=== PATIENT | female | born 1980 | race Caucasian/White ===

== ENCOUNTER 2019-01-18 19:52 | Emergency (ER) | payer SELFPAY ==
--- OUTSIDE RECORDS SUMMARY | 2019-01-18 20:02 | XMS REPORT | Continuity of Care Document ---
:1980 External Reference #:[id number] Author Name Swati Robert MD Address [address] [place] [address] Care Team Providers Name Role Phone Swati Robert MD Care Team Information Cold Header Unavailable Payers Date Identification Numbers Payment Provider Subscriber Policy Number: [id number] [facility] Ppo Yamilet Abraham PayID: [id number] [address] [address] [place] [address] Advance Directives Description No Information Available Problems Date Description Provider Status Onset: 01/07/2015 Kidney stone Lyly Carson, N.P. Active Onset: 01/07/2015 Charcot arthropathy of joint of ankle Lyly Carson, N.P. Active Family History Date Family Member(s) Observation Comments Father Hypertension Father due to VT () - 2010 Father Diabetes, Adult Mother Hypertension Mother Charcot Krista syndrome Mother Diabetes, Adult Mother Hypercholesterolemia First Sister Hypertension First Sister Li Grady Second Sister Cristina Social History Type Date Description Comments Sex Unknown Education Highest level completed, 12th grade Education Hightest level completed, took a few semesters of 1 year of college college Marital Status Lives With Spouse Lives With Son Lives With Daughter Diet Healthy, Well Balanced Smoke-Free Home is smoke-free Pets 3 dogs Pets Cows Pets Horse Drive Drives 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 Blood Donor Patient is a blood donor Hand Dominance RIGHT-handed Abuse No history of abuse Hobbies Gardening Hobbies farming Hobbies Sewing Tobacco Use Start: Unknown End: Former Cigarette Smoker QUIT IN 2003 Unknown 1/2 Pack Daily ETOH Use Occasionally consumes alcohol Tobacco Use Start: Unknown End: Patient is a former Unknown smoker Smoking Status Reviewed: 12/22/17 Patient is a former smoker Allergies, Adverse Reactions, Alerts Description No Known Drug Allergies Medications Medication Date Status Form Strength Qnty SIG Indications Ordering Provider Multivitamin Active Tablets 90tabs 1 by Ly Robert 019 mouth MD Swati every day Gabapentin Active Capsules 300mg 270caps 1 by M14.679 Jakob 018 mouth MD Swati three times a day Meloxicam Active Tablets 15mg 90tabs 1 by G60.0 Jakob 018 mouth MD Swati every day M14.679 Gabapentin 12/22/19 Hx Capsules 100mg 540caps 2 po three M14.679 Jakob 18 - times daily MD Swati 04/26/20 18 Oseltamivir 12/12/19 Hx Capsules 75mg 10caps 1 by mouth Blaine Robert 18 - every day for MD Swati 12/22/19 10 days 18 Meloxicam 09/21/20 Hx Tablets 7.5mg 60tabs 1 po bid G60.Karen Robert 17 - MD Swati 12/22/19 18 M14.679 Meloxicam 02/14/2017 - Hx Tablets 15mg 30tabs 1 tab by G60.Swati Brewster, 09/21/2017 mouth daily for pain for 1-2 weeks, then daily as needed for pain M14.679 Amoxicillin/Clavulanate 08/24/2016 Hx Tablets 875-125mg 20tabs 1 by J01.90 Jamilah Krishnan - reshma Allen MD 09/03/2016 twice a day Cefdinir 11/18/2014 Hx Capsules 300mg 20caps 1 by Alli - mouth Lyly, 01/07/2015 twice N.P. a day x 10 days Augmentin 04/11/2014 Hx Tablets 875-125mg 20tabs 1 po Alli, - bid x Masgeraldole, 11/18/2014 10 N.P. days Anusol-HC 01/18/2013 Hx Supposit 25mg 15units 1 pr Jessica Carson ory tid as Lyly, 11/18/2014 direc N.P. damir Ocuflox 01/02/2012 Hx Solution 0.3% 5ml 1 qtt [place], - to Mashelle, 01/18/2013 affect N.P. ed eye(s) q 4 hours for 2 days then qid x 5 days Clindamycin HCL 09/12/2011 Hx Capsules 300mg 14caps 1 po [place], - bid x Mashelle, 01/02/2012 7 days N.P. Valtrex 03/24/2011 Hx Tablets 1gm 4tabs 2 po [place], - bid x Mashelle, 11/18/2014 1 day N.P. Augmentin 03/24/2011 Hx Tablets 875-125mg 20tabs 1 po [place], - bid x Mashelle, 09/12/2011 10 N.P. days And Iron 01/25/2011 Hx Tablets 100tabs 1 po Alli, - qd Mashelle, 01/07/2015 N.P. Lotrisone 05/25/2009 Hx Cream 60g apply [place], - tid to Mashelle, 12/28/2010 affect N.P. ed area Ortho Tri-Cyclen 01/07/2009 Hx Tablets 2pk 1 po [place], - qd Mashelle, 12/28/2010 N.P. Chlorzoxazone 01/19/2007 Hx 500mg 40units 1 [place], - poqid Mashelle, 05/30/2008 prn N.P. Skelaxin 01/15/2007 Hx Tablets 800mg 40tabs 1 po Alli, - qid Mashelle, 01/19/2007 N.P. Ibuprofen 01/15/2007 Hx Tablets 600mg 30tabs 1 PO Alli, - qid W/ Mashelle, 05/30/2008 Food N.P. prn Pain Lab Testing 01/09/2007 Hx TSH,CB Alli, - C,comp Mashelle, 05/30/2008 lete N.P. metabo lic dx: fatigu e, dizzy, headca he Optivar 03/30/2006 Hx 1 gtt Alli, - each Mashelle, 05/30/2008 eye N.P. bid Keflex 03/14/2006 Hx Capsules 500mg 40caps 1 po Alli, - qid x Mashelle, 03/30/2006 10 N.P. days Bactroban 03/14/2006 Hx Ointment 2% 22gm apply [place], - bid as Mashelle, 03/30/2006 direct N.P. ed Natalie 28 Day Hx Tablets 0.03mg;3 1Pack 1 PO [place], - mg qd Mashelle, 01/07/2009 N.P. Meloxicam Hx Tablets 7.5mg 90tabs 1 by G60.0 Jakob, Jessica Longoria MD 02/14/2017 every day Immunizations CPT Code Status Date Vaccine Lot # [id number] Given 08/10/2018 Flu Vaccine NOS [id number] Given 09/13/2017 Afluria Or Fluvirin Flu Vac Intramuscular Vital Signs Date Vital Result Comment 12/27/2018 3:40pm Body Temperature 99.1 F tympanic Weight 201.00 lb Heart Rate 72 /min BP Systolic 114 mmHg BP Diastolic 70 mmHg Respiratory Rate 16 /min Height 62 inches 5'2" [facility] 12/27/18 O2 % BldC Oximetry 98 % BMI (Body Mass Index) 36.8 kg/m2 Last Menstrual Period [id number] [facility] 12/27/18 09/21/2018 3:58pm Weight 200.00 lb Height 63.5 inches 5'3.50" BMI (Body Mass Index) 34.9 kg/m2 04/26/2018 4:17pm Weight 197.00 lb Heart Rate 76 /min BP Systolic 112 mmHg BP Diastolic 70 mmHg Respiratory Rate 18 /min Height 63.5 inches 5'3.50"04/16/18 BMI (Body Mass Index) 34.3 kg/m2 04/16/2018 10:56am Weight 201.00 lb Heart Rate 76 /min BP Systolic 112 mmHg BP Diastolic 60 mmHg Respiratory Rate 18 /min Height 63.5 inches 5'3.50"04/16/18 BMI (Body Mass Index) 35.0 kg/m2 01/16/2018 4:17pm Weight 201.00 lb Heart Rate 68 /min BP Systolic 102 mmHg BP Diastolic 70 mmHg Respiratory Rate 18 /min Height 63.5 inches 5'3.50"02/14/17 BMI (Body Mass Index) 35.0 kg/m2 12/22/2017 4:04pm Weight 200.00 lb Heart Rate 76 /min BP Systolic 112 mmHg BP Diastolic 70 mmHg Height 63.5 inches 5'3.50"02/14/17 BMI (Body Mass Index) 34.9 kg/m2 09/21/2017 3:43pm Weight 189.00 lb Heart Rate 76 /min BP Systolic 112 mmHg BP Diastolic 70 mmHg Respiratory Rate 18 /min Height 63.5 inches 5'3.50"02/14/17 BMI (Body Mass Index) 33.0 kg/m2 02/14/2017 10:54am Weight 198.00 lb Heart Rate 80 /min BP Systolic 112 mmHg Respiratory Rate 18 /min Height 63.5 inches 5'3.50"02/14/17 BMI (Body Mass Index) 34.5 kg/m2 08/24/2016 10:07am Body Temperature 97.9 F Weight 194.00 lb Heart Rate 72 /min BP Systolic 130 mmHg BP Diastolic 78 mmHg Respiratory Rate 14 /min Height 63.5 inches 5'3.50" O2 % BldC Oximetry 98 % On room air BMI (Body Mass Index) 33.8 kg/m2 06/03/2016 10:59am Weight 191.00 lb Heart Rate 72 /min BP Systolic 100 mmHg BP Diastolic 70 mmHg Respiratory Rate 16 /min 05/18/2016 9:05am Weight 191.00 lb Heart Rate 76 /min BP Systolic 102 mmHg BP Diastolic 70 mmHg Respiratory Rate 18 /min Height 63.5 inches 5'3.50" BMI (Body Mass Index) 33.3 kg/m2 03/09/2016 8:15am Weight 192.00 lb Heart Rate 70 /min BP Systolic 114 mmHg BP Diastolic 74 mmHg Respiratory Rate 18 /min Height 63.5 inches 5'3.50" BMI (Body Mass Index) 33.5 kg/m2 01/07/2015 9:57am Body Temperature 99.0 F Weight 196.00 lb Heart Rate 89 /min BP Systolic 108 mmHg BP Diastolic 55 mmHg 11/18/2014 10:15am Body Temperature 98.9 F Weight 195.12 lb Heart Rate 69 /min BP Systolic 112 mmHg BP Diastolic 51 mmHg O2 % BldC Oximetry 98 % 10/17/2014 8:31am Body Temperature 98.5 F Weight 192.12 lb Heart Rate 73 /min BP Systolic 100 mmHg BP Diastolic 53 mmHg 04/11/2014 10:53am Body Temperature 99.7 F Weight 184.00 lb Heart Rate 79 /min BP Systolic 110 mmHg BP Diastolic 68 mmHg O2 % BldC Oximetry 95 % 10/24/2013 10:03am Body Temperature 98.0 F Weight 188.12 lb Heart Rate 79 /min BP Systolic 112 mmHg BP Diastolic 70 mmHg O2 % BldC Oximetry 98 % 09/26/2013 10:59am Body Temperature 96.3 F Weight 184.50 lb Heart Rate 67 /min BP Systolic 100 mmHg BP Diastolic 60 mmHg O2 % BldC Oximetry 99 % 01/18/2013 8:23am Body Temperature 98.7 F Weight 192.38 lb Heart Rate 88 /min BP Systolic 112 mmHg BP Diastolic 66 mmHg O2 % BldC Oximetry 98 % 08/03/2012 9:03am Body Temperature 98.2 F Weight 187.50 lb Heart Rate 98 /min BP Systolic 108 mmHg BP Diastolic 58 mmHg O2 % BldC Oximetry 99 % 07/27/2012 8:28am Body Temperature 98.6 F Weight 186.25 lb Heart Rate 89 /min BP Systolic 110 mmHg BP Diastolic 60 mmHg O2 % BldC Oximetry 98 % 01/02/2012 1:27pm Body Temperature 98.8 F Weight 182.00 lb Heart Rate 76 /min BP Systolic 106 mmHg BP Diastolic 63 mmHg O2 % BldC Oximetry 99 % 09/09/2011 11:31am Body Temperature 98.9 F Weight 179.00 lb Heart Rate 59 /min BP Systolic 111 mmHg BP Diastolic 70 mmHg O2 % BldC Oximetry 98 % 03/24/2011 1:48pm Body Temperature 99.0 F Weight 179.00 lb Heart Rate 82 /min BP Systolic 98 mmHg BP Diastolic 60 mmHg O2 % BldC Oximetry 97 % 01/25/2011 2:43pm Weight 182.00 lb Heart Rate 95 /min BP Systolic 120 mmHg BP Diastolic 60 mmHg O2 % BldC Oximetry 98 % 12/28/2010 11:03am Body Temperature 99.1 F Weight 181.00 lb Heart Rate 61 /min BP Systolic 90 mmHg BP Diastolic 60 mmHg Height 62.5 inches 5'2.50" O2 % BldC Oximetry 98 % BMI (Body Mass Index) 32.6 kg/m2 05/25/2009 2:15pm Body Temperature 98.9 F Weight 180.00 lb Heart Rate 72 /min BP Systolic 100 mmHg BP Diastolic 60 mmHg 03/30/2009 9:00am Body Temperature 98.4 F Weight 183.00 lb Heart Rate 70 /min BP Systolic 120 mmHg BP Diastolic 78 mmHg 01/07/2009 3:40pm Body Temperature 98.6 F Weight 183.00 lb Heart Rate 64 /min BP Systolic 98 mmHg BP Diastolic 60 mmHg Height 63 inches 5'3" O2 % BldC Oximetry 98 % BMI (Body Mass Index) 32.4 kg/m2 12/29/2008 4:09pm Body Temperature 98.5 F Weight 184.00 lb Heart Rate 64 /min BP Systolic 100 mmHg BP Diastolic 70 mmHg 05/30/2008 10:02am Weight 177.00 lb Heart Rate 70 /min BP Systolic 100 mmHg BP Diastolic 60 mmHg Height 63 inches 5'3" BMI (Body Mass Index) 31.4 kg/m2 01/15/2007 3:43pm Body Temperature 98.9 F Weight 179.00 lb Heart Rate 80 /min BP Systolic 100 mmHg BP Diastolic 60 mmHg 01/09/2007 3:55pm Body Temperature 98.8 F Weight 177.00 lb Heart Rate 80 /min BP Systolic 110 mmHg BP Diastolic 58 mmHg 03/30/2006 4:03pm Body Temperature 98.7 F Weight 175.00 lb Heart Rate 76 /min BP Systolic 110 mmHg BP Diastolic 60 mmHg 03/14/2006 4:06pm Weight 174.00 lb Heart Rate 80 /min BP Systolic 104 mmHg BP Diastolic 60 mmHg Results Test Date Facility Test Result H/L Range Note Laboratory test 12/27/2018 [facility] Pap Smear Thin <pending> finding Prep-RL CBC With [facility] K/uL 4.1-11.0 1 RBC 4.07 M/uL 4.00-5.40 Hemoglobin 12.6 gm/dL 12.0-16.0 Hematocrit 35.7 % Low 36.0-47.0 MCV 87.8 fL 80.0-97.0 MCH 30.9 pg 27.0-32.0 MCHC 35.2 g/dL 32.0-36.0 RDW 13.8 % 11.5-14.5 PLT Count 272 K/ul 140-400 MPV 8.4 FL 7.1-10.7 Neutrophil 64.2 % 35.0-75.0 Lymphocyte 28.8 % 16.0-52.0 Monocyte 5.1 % 2.0-10.0 Eosinophil 1.4 % 0.0-5.0 Basophil 0.5 % 0.0-4.0 Abs Neutrophils 4.7 K/uL 2.1-8.0 Abs Lymphocytes 2.1 K/uL 0.8-5.5 Abs Monocytes 0.4 K/uL 0.1-1.0 Abs Eosinophils 0.1 K/uL 0.0-0.5 Abs Basophils 0.0 K/uL 0.0-0.3 Comprehensive Met Panel-FCMG 12/15/2017 [facility] Sodium 141 mmol/L 135- 146 2 Potassium 4.1 mmol/L 3.5-5.2 Chloride# 110 mmol/L 97-110 3 Carbon Dioxide 26 mmol/L 24-34 Glucose 78 mg/dL 70-105 BUN 14 mg/dL 6-26 Creatinine 0.5 mg/dL 0.5-1.4 Calcium 8.5 mg/dL 8.5-10.2 Total Protein 6.1 g/dL 6.0-8.0 Albumin 3.8 g/dL 3.6-4.9 Globulin 2.3 g/dL 2.0-3.5 A/G Ratio 1.7 Ratio 1.0-2.2 Total Bilirubin 0.4 mg/dL 0.1-1.3 Alkaline Phosphatase 64 U/L 24-140 Alt 17 U/L 3-42 Ast 14 U/L 8-42 Lacey Egfr >60 >60 4 Non Lacey Egfr >60 >60 5 Anion Gap 5 mmol/L Low 7-16 6 Laboratory test 12/15/2017 [facility] TSH 1.01 uIU/mL 0.35-4.94 finding Laboratory test 05/18/2016 [facility] HPV Laboratory Allia 7 finding [phone] <SEE NOTE> Laboratory test 05/18/2016 [facility] Urine Microbiology res 8, 9 finding Culture <SEE NOTE> Laboratory test 05/18/2016 [facility] Pap Smear SEE NOTE 10 finding Thin Prep CBC With Auto 05/12/2016 [facility] WBC 6.9 K/uL 4.1-11.0 11 Diff RBC 4.32 M/uL 4.00-5.40 Hemoglobin 12.6 gm/dL 12.0-16.0 Hematocrit 37.9 % 36.0-47.0 MCV 87.9 fL 80.0-97.0 MCH 29.2 pg 27.0-32.0 MCHC 33.2 g/dL 32.0-36.0 RDW 13.9 % 11.5-14.5 PLT Count 283 K/ul 140-400 Neutrophil 66.4 % 35.0-75.0 Lymphocyte 26.3 % 16.0-52.0 Monocyte 5.4 % 2.0-10.0 Eosinophil 1.3 % 0.0-5.0 Basophil 0.6 % 0.0-4.0 Abs Neutrophils 4.6 K/uL 2.1-8.0 Abs Lymphocytes 1.8 K/uL 0.8-5.5 Abs Monocytes 0.4 K/uL 0.1-1.0 Abs Eosinophils 0.1 K/uL 0.0-0.5 Abs Basophils 0.0 K/uL 0.0-0.3 Comprehensive Metabolic (CMP) 05/12/2016 [facility] Sodium 138 mmol/L 134- 142 Potassium 4.3 mmol/L 3.5-5.2 Chloride 106 mmol/L 97-109 Carbon Dioxide 26 mmol/L 24-34 Glucose 92 mg/dL 70-105 BUN 12 mg/dL 6-26 Creatinine 0.5 mg/dL 0.5-1.4 Calcium 9.0 mg/dL 8.5-10.2 Total Protein 6.4 g/dL 6.0-8.0 Albumin 3.7 g/dL 3.6-4.9 Globulin 2.7 g/dL 2.0-3.5 A/G Ratio 1.4 Ratio 1.0-2.2 Total Bilirubin 0.6 mg/dL 0.1-1.3 Alkaline Phosphatase 74 U/L 24-140 Alt 15 U/L 3-42 Ast 14 U/L 8-42 Anion Gap 10 mmol/L 6-14 Lacey Egfr >60 >60 12 Non Lacey Egfr >60 >60 13 Laboratory test finding 05/12/2016 [facility] FSH 3.3 mIU/ml 14 LH 12.3 mIU/ml 15 TSH 1.50 uIU/mL 0.35-4.94 Testosterone LC, Bio 05/12/2016 [facility] Testosterone, LCMS 16.4 ng/dL ( 9.0-55.0) 16 Female/Child -RL Testo, Bioavailable 5.8 ng/dL (4.1-25.5) 17 Testo, Free 1.9 pg/mL (1.3-9.2) 18 Sex Horm Bind Glob @ 43 nmol/L (18-136) 19 Lipid 05/12/2016 [facility] Cholesterol 153 mg/dL 50-199 Triglycerides 130 mg/dL 30-200 HDL 32 mg/dL Low 35-85 20 Chol/ HDL Ratio 4.8 ratio 3.7-5.6 VLDL 26 mg/dL 2-29 LDL (Calc) 95 mg/dL 20-99 21 Comprehensive Metabolic (CMP) 01/07/2015 [facility] Sodium 138 mmol/L 134- 142 22 Potassium 4.2 mmol/L 3.5-5.2 Chloride 107 mmol/L 97-109 Carbon Dioxide 25 mmol/L 24-34 Glucose 84 mg/dL 70-105 BUN 10 mg/dL 6-26 Creatinine 0.5 mg/dL 0.5-1.4 Calcium 8.9 mg/dL 8.5-10.2 Total Protein 6.2 g/dL 6.0-8.0 Albumin 3.9 g/dL 3.6-4.9 Globulin 2.3 g/dL 2.0-3.5 A/G Ratio 1.7 Ratio 1.0-2.2 Total Bilirubin 0.3 mg/dL 0.1-1.3 Alkaline Phosphatase 63 U/L 24-140 Alt 15 U/L 3-42 Ast 13 U/L 8-42 Anion Gap 10 mmol/L 6-14 Lacey Egfr >60 >60 23 Non Lacey Egfr >60 >60 24 CBC With Auto Diff 01/07/2015 [facility] WBC 7.2 K/uL 4.1-11.0 RBC 4.24 M/uL 4.00-5.40 Hemoglobin 11.7 gm/dL Low 12.0-16.0 Hematocrit 35.7 % Low 36.0-47.0 MCV 84.3 fL 80.0-97.0 MCH 27.6 pg 27.0-32.0 MCHC 32.8 g/dL 32.0-36.0 RDW 16.9 % High 11.5-14.5 PLT Count 267 K/ul 140-400 Neutrophil 61.4 % 35.0-75.0 Lymphocyte 33.2 % 16.0-52.0 Monocyte 3.9 % 2.0-10.0 Eosinophil 1.1 % 0.0-5.0 Basophil 0.4 % 0.0-4.0 Abs Neutrophils 4.4 K/uL 2.1-8.0 Abs Lymphocytes 2.4 K/uL 0.8-5.5 Abmon 0.3 K/uL 0.1-1.0 Abs Eosinophils 0.1 K/uL 0.0-0.5 Abs Basophils 0.0 K/uL 0.0-0.3 Laboratory test 05/12/2014 [facility] HCG Serum, NEGATIVE finding (315)- - Qualitative Laboratory test 01/17/2014 [facility] Thyroid Stim 1.09 uIU/mL 0.49-4 finding (315)- - Hormone .67 Free T4 1.03 ng/dL 0.71-1.85 Cancer Antigen (CA) 125 17.1 U/mL 0.0-34.0 25 CBC 01/17/2014 [facility] White Blood Count 7.0 K/uL 3.1-10.7 (315)- - Red Blood Count 4.17 M/uL 3.90-5.40 Hemoglobin 12.2 gm/dL 11.6-15.8 Hematocrit 37.6 % 36.0-46.1 Mean Cell Volume 90.2 fl 80.9-99.0 Mean Corpuscular HGB 29.3 pg 25.9-32.7 Mean Corpuscular HGB Conc 32.4 g/dL 30.8-34.3 Platelet Count 297 K/uL 155-360 Red Cell Distri Width %CV 13.9 % 11.7-14.4 Mean Platelet Volume 10.4 fL 8.9-12.4 Affirm 10/24/2013 [facility] Trichomonas Vaginalis Negative Negative Gardnerella Vaginalis Negative Negative Adwoa Species Positive Abnormal Negative Laboratory test 10/24/2013 [facility] GC by Dna NEGATIVE Negative finding Probe Laboratory test 10/24/2013 [facility] Vag/Cerv SEE NOTE 26 finding Culture Urinalysis With 09/06/2013 [facility] Urine Color YELLOW Yellow Microscopic (315)- - Urine Clarity CLEAR Clear Urine Glucose - Dipstick NEGATIVE mg/dL Negative Urine Bilirubin - Dipstick NEGATIVE Negative Urine Ketone NEGATIVE mg/dL Negative Urine Specific [place] 1.020 1.010-1.030 Urine Blood LARGE High Negative Urine PH 6.5 6.5-7.5 Urine Protein - Dipstick 30 mg/dL High Negative Urine Urobilinogen - Dipstick 0.2 E.U./dL 0.2-1.0 Urine Nitrite - Dipstick NEGATIVE Negative Urine Leuk Esterase NEGATIVE Negative Urine RBC 30-50 rbc/hpf High 0-7 Urine WBC NONE SEEN wbc/hpf 0-7 Urine Epithelial Cells VERY FEW NONESEEN/lpf Urine Bacteria VERY FEW NONESEEN Urine HCG 09/06/2013 [facility] Urine HCG See Note 27 (Qualitative) (315)- - (Qualitative) Urine Screen 09/06/2013 [facility] Urine Screen See Note 28 (315)- - Laboratory test 09/06/2013 [facility] HCG Serum, NEGATIVE finding (315)- - Qualitative Comprehensive 09/06/2013 [facility] Glucose 114 mg/dL 76-11 Metabolic Panel (315)- - 5 BUN 12 mg/dL 5-23 Creatinine 0.7 mg/dL 0.5-1.4 Glom Filtration Rate, Estimate >60 mL/min >60 If >60 mL/min >60 29 BUN/Creat 17.1 ratio Sodium 141 mmol/L 136-145 Potassium 4.1 mmol/L 3.5-5.1 Chloride 110 mmol/L High 98-107 Carbon Dioxide 23 mEq/L 18-29 Anion Gap 12 mEq/L 8-16 Calcium 8.6 mg/dL 8.5-10.1 Total Protein 7.5 g/dL 6.3-8.0 Albumin 3.7 g/dL 3.5-5.0 Globulin 3.8 g/dL 1.9-4.3 Alb/Glob 1.0 ratio Bilirubin,Total 0.3 mg/dL 0.2-1.2 Sgot/Ast 12 U/L Low 16-40 SGPT/Alt 24 U/L Low 30-65 Alkaline Phosphatase 98 U/L 50-136 Laboratory test 09/06/2013 [facility] Lipase 58 U/L 28 -380 finding (315)- - CBC W/Automated 09/06/2013 [facility] White Blood 14.1 K/ uL High 3.1-10.7 Diff (315)- - Count Red Blood Count 4.37 M/uL 3.90-5.40 Hemoglobin 12.9 gm/dL 11.6-15.8 Hematocrit 38.6 % 36.0-46.1 Mean Cell Volume 88.3 fl 80.9-99.0 Mean Corpuscular HGB 29.5 pg 25.9-32.7 Mean Corpuscular HGB Conc 33.4 g/dL 30.8-34.3 Platelet Count 316 K/uL 155-360 Red Cell Distri Width SD 45.4 fl 3-47 Red Cell Distri Width %CV 14.4 % 11.7-14.4 Mean Platelet Volume 10.4 fL 8.9-12.4 Neut% 83.8 % High 40.4-72.8 Lymph % 12.7 % Low 17.0-46.1 [place] % 2.6 % Low 4.3-13.2 Eo% 0.8 % 0.0-6.6 Bas% 0.1 % 0.0-1.1 Neut# 11.82 K/uL High 1.0-7.0 Lymph # 1.80 K/uL 0.8-3.4 [place] # 0.37 K/uL 0.3-0.9 Eos # 0.12 K/uL 0.0-0.5 Baso # 0.02 K/uL 0.0-0.1 Laboratory test 09/09/2011 [facility] Urine Culture Microbiology res 30, 31 finding <SEE NOTE> Affirm 09/09/2011 [facility] Trichomonas Negative Negative Vaginalis Gardnerella Vaginalis Positive Abnormal Negative Adwoa Species Negative Negative Laboratory test 12/28/2010 [facility] (Do not Use) [facility] Pap - (SEE NOTE) [address] [facility] [place] [address] [phone] HPV Dna Test-[place] NEGATIVE 33 Laboratory test 12/28/2010 [facility] HPV Laboratory [facility] 34 finding [phone] <SEE NOTE> Laboratory test 05/25/2009 [facility] (Do not Use) [facility] Pap - (SEE NOTE) [address] [facility] [place] [address] [phone] Vaginitis Direct Test(Affirm) -LA (SEE NOTE) 36 Laboratory test 03/27/2009 [facility] Urine HCG NEGATIVE Negative 37 finding (315)- - (Qualitative) Urine Screen 03/27/2009 [facility] Urine Color YELLOW Yellow (315)- - Urine Clarity CLEAR Clear Urine Glucose - Dipstick NEGATIVE mg/dL Negative Urine Bilirubin - Dipstick NEGATIVE Negative Urine Ketone NEGATIVE mg/dL Negative Urine Specific [place] <=1.005 Low 1.010-1.030 Urine Blood NEGATIVE Negative Urine PH 6.0 Low 6.5-7.5 Urine Protein - Dipstick NEGATIVE mg/dL Negative Urine Urobilinogen - Dipstick 0.2 E.U./dL 0.2-1.0 Urine Nitrite - Dipstick NEGATIVE Negative Urine Leuk Esterase NEGATIVE Negative Dna Probe N. 03/27/2009 [facility] Dna Probe For <see comment> 38 Gono & C. (315)- - Chlamydia Trac. Trach. Dna Probe For N. Gonorrhoeae <see comment> 39 Laboratory test 03/27/2009 [facility] Trichomonas <see comment> 40 finding (315)- - Direct Exam Laboratory test 05/30/2008 [facility] (Do not Use) Papsmear, (SEE NOTE) 41 finding [facility] [place] [address] [phone] [facility] Pap - [place] (SEE NOTE) 42 Vaginitis Direct Ag 03/30/2006 [facility] (Do not Use) Special Requests - NONE (Affirm) -[facility] [place] [address] [phone] Report Status - LA FINAL 1 3 mos 2 Updated reference range on new analyzer 3 Updated reference range on new analyzer 4 Concerning GFR Guidelines for Americans: Normal function or mild renal disease, if clinically at risk: >/=60 mL/min Moderately decreased: 30-59 Severely decreased: 15-29 Renal failure: <15 5 Concerning GFR Guidelines: Normal function or mild renal disease, if clinically at risk: >/=60 mL/min Moderately decreased: 30-59 Severely decreased: 15-29 Renal failure: <15 Glomerular Filtration Rate (GFR) is estimated based on the MDRD equation, which assumes a steady state for creatinine as recommended by the National Kidney Disease Education Program in conjunction with the National Institutes of Health and the National Kidney Foundation. Clinical conditions in which it may be necessary to measure GFR by using clearance methods include extremes of age and body size, severe malnutrition or obesity, diseases of skeletal muscle, paraplegia or quadriplegia, vegetarian diet, rapidly changing kidney function, and calculation of the dose of potentially toxic drugs that are excreted by the kidneys. 6 Updated reference range on new analyzer 7 Laboratory [place] [address] Amplified Molecular High Risk HPV Test Accession Number [id number] Specimen(s) Received A: High Risk HPV Thin Prep Cervical / Endocervical Pap Smear - One Vial Other Case Numbers: [id number] Diagnosis RISK GROUPS RESULTS High Risk NEGATIVE Tested for HPV Types (16, 18, 31, 33, 35, 39, 45, 51, 52, 56, 58, 59, 66, 68) Reported: 05/20/2016 15:08 Electronically Signed Out By Aleida Hills [email or web address] 8 Fastin hours 9 Microbiology results SOURCE MIDU FINAL RESULT No growth 10 LABORATORY [facility]. Formerly [facility] [place] [address] CYTOLOGY REPORT Source of Specimen(s): Thin Prep Cervical / Endocervical Pap Smear - One Vial Date of Last Menstrual Period: 2 wks ago Other Clinical Conditions: Last Pap Smear: 2010 normal HPV ASSAY REQUESTED Specimen Adequacy Satisfactory for evaluation Presence of endocervical/transformation zone component General Categorization Negative for intraepithelial lesion or malignancy Interpretation NEGATIVE FOR INTRAEPITHELIAL LESION OR MALIGNANCY Recommendations HPV testing will be performed and a separate report will be issued. Reported: 05/20/2016 09:04 Electronically Signed Out By Cary Yun SCT(ASCP)([facility]) [facility] ICD9 Code: Z01.411 Unless otherwise specified, testing performed by [facility] [address] [place] [address] 11 prior to 12 Concerning GFR Guidelines for Americans: Normal function or mild renal disease, if clinically at risk: >/=60 mL/min Moderately decreased: 30-59 Severely decreased: 15-29 Renal failure: <15 13 Concerning GFR Guidelines: Normal function or mild renal disease, if clinically at risk: >/=60 mL/min Moderately decreased: 30-59 Severely decreased: 15-29 Renal failure: <15 Glomerular Filtration Rate (GFR) is estimated based on the MDRD equation, which assumes a steady state for creatinine as recommended by the National Kidney Disease Education Program in conjunction with the National Institutes of Health and the National Kidney Foundation. Clinical conditions in which it may be necessary to measure GFR by using clearance methods include extremes of age and body size, severe malnutrition or obesity, diseases of skeletal muscle, paraplegia or quadriplegia, vegetarian diet, rapidly changing kidney function, and calculation of the dose of potentially toxic drugs that are excreted by the kidneys. 14 FSH Female Normal Values: Mid-Follicular: 3.9-8.8 mIU/mL Mid-cycle Peak: 4.5-22.5 mIU/mL Mid-Luteal: 1.8-5.1 mIU/mL Post-menopausal:16.7-113.6 mIU/mL 15 Lutenizing Hormone Female Normal Values: Mid-Follicular: 2.1-10.9 mIU/mL Mid-cycle Peak: 19.2-103.0 mIU/mL Mid-Luteal: 1.2-12.9 mIU/mL Post-menopausal:10.9-58.6 mIU/mL 16 This test is suggested for women, children and hypogonadal males due to improved sensitivity when testing by LC-MS/MS. The assay was developed and its performance characteristics determined by [facility] [place], and it has been approved by [facility]. The US Food and Drug Administration has not approved or cleared this test. FDA clearance or approval, however, is not currently required for clinical use. The results are not intended to be used as the sole means for clinical diagnosis or patient management decisions. Total testosterone values may not reflect optimal concentrations in all individuals. Free or bioavailable testosterone measurement may provide supportive information. Access complete set of age- and/or gender- specific reference intervals for this test in the [facility] [employer] ([employer]) PERFORMED AT [address] [place] [address] 17 BIOAVAILABLE TESTOSTERONE INCLUDES FREE AND WEAKLY BOUND TESTOSTERONE. THE CONCENTRATION IS DERIVED FROM A MATHEMATICAL EXPRESSION BASED ON THE CONSTANTS FOR BINDING OF TESTOSTERONE TO SHBG AND ALBUMIN. 18 THE CONCENTRATION OF FREE TESTOSTERONE IS DERIVED FROM A MATHEMATICAL EXPRESSION BASED ON THE CONSTANT FOR THE BINDING OF TESTOSTERONE TO SHBG. 19 ADULT REFERENCE RANGE Unless otherwise specified, testing performed by [facility] [place] [address] 20 Per NCEP ATP III Guidelines: Results lower than 40 mg/dL are suggestive of increased risk for coronary artery disease. Results > or=to 60 mg/dL are considered a negative risk factor. 21 Per NCEP ATP III Guidelines: Normal Population <130 Patients with medical conditions: CHD/DM Optimal: <100 Borderline high: 130-159 High: 160-189 Very high: >189 22 This sample is drawn by:KD/HANDBAG OPERATOR 23 Concerning GFR Guidelines for Americans: Normal function or mild renal disease, if clinically at risk: >/=60 mL/min Moderately decreased: 30-59 Severely decreased: 15-29 Renal failure: <15 24 Concerning GFR Guidelines: Normal function or mild renal disease, if clinically at risk: >/=60 mL/min Moderately decreased: 30-59 Severely decreased: 15-29 Renal failure: <15 Glomerular Filtration Rate (GFR) is estimated based on the MDRD equation, which assumes a steady state for creatinine as recommended by the National Kidney Disease Education Program in conjunction with the National Institutes of Health and the National Kidney Foundation. Clinical conditions in which it may be necessary to measure GFR by using clearance methods include extremes of age and body size, severe malnutrition or obesity, diseases of skeletal muscle, paraplegia or quadriplegia, vegetarian diet, rapidly changing kidney function, and calculation of the dose of potentially toxic drugs that are excreted by the kidneys. 25 Marian ECLIA methodology Values obtained with different assay methods or kits cannot be used interchangeably. Results cannot be interpreted as absolute evidence of the presence or absence of malignant disease. Performed at: RN - [facility] [address] [id number] Adult Ministries Director: Crista Rubio MD, Phone: [phone] 26 SPECIMEN DESCRIPTION CERVICAL GROUP B STREP CULT. POSITIVE: BETA HEMOLYTIC STREPTOCOCCI GROUP B B Y PCR CULTURE RESULTS NORMAL VAGINAL JERMAINE NO NEISSERIA GONORRHOEAE ISOLATED REPORT STATUS FINAL 10/28/2013 Unless otherwise specified, testing performed by [facility] [address] [address] 27 09/06/13 LAB.VIELKA DUPLICATE ORDER 28 09/06/13 LAB.GSP Deleted by [facility] Group [facility] 29 Note: Persistent reduction for 3 months or more in an eGFR <60 mL/min/1.73 m2 defines CKD. Patients with eGFR values >/=60 mL/min/1.73 m2 may also have CKD if evidence of persistent proteinuria is present. The original MDRD equation for estimated GFR is not valid for patients less than 18 years of age. Additional information may be found at www.kdoqi.org. 30 This sample is drawn by:MOUNIKA/MEENA 31 Microbiology results SOURCE MIDU RESULT No Growth 32 [employer] [facility]. [address] [place], [place] [id number] GYNECOLOGIC CYTOLOGY REPORT Accession Number: [id number] Source of Specimen(s): A: SurePath Cervical / Endocervical Pap Smear - One Vial Clinical Diagnosis and History: Date of Last Menstrual Period: None Provided Other Clinical Conditions: DIGENE HPV ASSAY REQUESTED Specimen Adequacy Satisfactory for evaluation Presence of endocervical/transformation zone component General Categorization Negative for intraepithelial lesion or malignancy Interpretation NEGATIVE FOR INTRAEPITHELIAL LESION OR MALIGNANCY Acute inflammatory cells Recommendations HPV testing will be performed via Digene Hybrid Capture II and a separate report will be issued. Reported: 12/30/2010 Electronically Signed Out By Jessica JAQUEZ(ASCP) [facility] Unless otherwise specified, testing performed by [facility] [address] [address] 33 HPV TESTING INFORMATION: The performance characteristics of this test were validated by [employer], [place]. The US Food and Drug Administration (FDA) has not approved this test. The results are not intended to be used as the sole means for clinical diagnosis or patient management decisions. [employer] is authorized under Clinical Laboratory Improvement A mendments (CLIA) and by all states to perform high-complexity testing. High Risk HPV, Cervix The high-risk HPV test detects HPV genotypes 16, 18, 31, 33, 35, 39, 45, 51, 52, 56, 58, 59, and 68, which are associated with cervical cancer and it's precursor lesions. However, cross-reactions, with other genotypes may occur. Results should be correlated with cytologic and histologic findings. Sensitivity may be affected by cellularity of specimen. 34 [facility] [place] [address] [address] [employer] Hybrid Capture II HPV Test Accession Number [id number] Specimen(s) Received A: Digene SP Cervical / Endocervical Pap Smear - One Vial Other Case Numbers: [id number] Diagnosis RISK GROUPS HPV TYPES RESULTS High Risk (16, 18, 31, 33, 35, 39, 45, 51, 52, 56, 58, 59, 68) NEGATIVE Comments The performance characteristics of the SurePath cell pellet specimen tested for this assay were validated by [facility] [employer] and licensed for use by the [facility] Department of [facility]. This test has not been licensed by the FDA and the result is not intended to be used as the sole means for clinical diagnosis or patient management. Negative results do not rule out the presence of disease. Reported: 12/31/2010 16:43 Electronically Signed Out By Maine Wright ckl 35 [employer]. Formerly [facility] [place] [address] GYNECOLOGIC CYTOLOGY REPORT Accession Number: [id number] Source of Specimen(s): A: SurePath Cervical / Endocervical Pap Smear - One Vial Clinical Diagnosis and History: Date of Last Menstrual Period: 04/13/09 Other Clinical Conditions: Last Pap Smear: 2007 wnl Specimen Adequacy Satisfactory for evaluation Presence of endocervical/transformation zone component General Categorization Negative for intraepithelial lesion or malignancy Interpretation NEGATIVE FOR INTRAEPITHELIAL LESION OR MALIGNANCY Acute inflammatory cells Reported: 05/27/2009 Electronically Signed Out By Linda JAQUEZ(ASCP) [facility] lxd ICD9 Code: V72.31 Unless otherwise specified, testing performed by [employer] [address] [address] 36 SPECIMEN DESCRIPTION GENITAL RESULT NEGATIVE FOR TRICHOMONAS VAGINALIS NEGATIVE FOR GARDNERELLA VAGINALIS NEGATIVE FOR ADWOA SPECIES REPORT STATUS FINAL 05/25/2009 Unless otherwise specified, testing performed by [employer] [place] [address] [place] [address] 37 FIRST MORNING SPECIMENS GENERALLY CONTAIN THE HIGHEST CONCENTRATION OF HCG AND ARE RECOMMENDED FOR EARLY DETECTION OF . 38 NEGATIVE FOR CHLAMYDIA TRACHOMATIS BY DNA HYBRIDIZATION ASSAY. THIS TEST IS APPROVED FOR OCULAR AND UROGENITAL SITES ONLY. 39 NEGATIVE FOR NEISSERIA GONORRHOEAE BY DNA HYBRIDIZATION ASSAY. THIS METHOD IS APPROVED FOR UROGENITAL SITES ONLY. 40 No Trichomonas, yeast, or clue cells seen. This is a presumptive result. Specimens received more than 30 minutes after collection may yield false negative results. Identification of Trichomonas is made by the observation of motility, which becomes progressively diminished after 30 minutes. 41 SEE SUREPATH RESULT 42 [employer]. [address] [place] [address] GYNECOLOGIC CYTOLOGY REPORT Accession Number: [id number] Source of Specimen(s): A: SurePath Vaginal / Cervical Pap Smear - One Vial Clinical Diagnosis and History: Date of Last Menstrual Period: 05/07/08 Other Clinical Conditions: Last Pap Smear: 08/18 +hpv Specimen Adequacy Satisfactory for evaluation Presence of endocervical/transformation zone component General Categorization Negative for intraepithelial lesion or malignancy Interpretation NEGATIVE FOR INTRAEPITHELIAL LESION OR MALIGNANCY Acute inflammatory cells Reported: 06/03/2008 Electronically Signed Out By Cary MARK(ASCP)([facility]) [facility] ICD9 Code: V72.31 Unless otherwise specified, testing performed by [facility] [employer] [address] [place] [address] Procedures Date Code Description Status 12/27/2018 13158 Brief Emotional/Behav Assessment W/ Scoring Doc Per Completed Standard Inst 12/27/2018 97692 Measure Blood Oxygen Level Single Determination Completed 04/26/2018 45252 Brief Emotional/Behav Assessment W/ Scoring Doc Per Completed Standard Inst 08/24/2016 64684 Measure Blood Oxygen Level Single Determination Completed Encounters Type Date Location Provider Dx Diagnosis Office Visit 09/21/2018 4:15p [facility] Swati Robert MD N20.0 Calculus of kidney M14.679 Charcot's joint, unspecified ankle and foot Z68.34 Body mass index (BMI) 34.0-34.9, adult Office Visit 04/26/2018 4:15p [facility] Swati Robert MD M14.679 Charcot's joint, unspecified ankle and foot R23.3 Spontaneous ecchymoses I83.90 Asymptomatic varicose veins of unspecified lower extremity N20.0 Calculus of kidney Z13.89 Encounter for screening for other disorder Z68.34 Body mass index (BMI) 34.0-34.9, adult Office Visit 04/16/2018 10:45a [facility] Swati Robert MD R23.3 Spontaneous ecchymoses I83.90 Asymptomatic varicose veins of unspecified lower extremity Z68.35 Body mass index (BMI) 35.0-35.9, adult Office Visit 01/16/2018 4:15p [facility] Swati Robert MD M14.679 Charcot's joint, unspecified ankle and foot Office Visit 12/22/2017 4:15p [facility] Swati Robert MD M14.679 Charcot's joint, unspecified ankle and foot G60.0 Hereditary motor and sensory neuropathy Office Visit 09/21/2017 3:30p [facility] Swati Robert MD Z01.419 Encntr for cane cutter exam (general) (routine) w/o abn findings M14.679 Charcot's joint, unspecified ankle and foot M62.541 Muscle wasting and atrophy, NEC, RIGHT hand R00.2 Palpitations Z68.33 Body mass index (BMI) 33.0-33.9, adult Office Visit 02/14/2017 11:00a [facility] Swati Robert MD M25.572 Pain in LEFT ankle and joints of LEFT foot Office Visit 08/24/2016 10:00a [facility] Tiffany Krishnan MD J01.90 Acute sinusitis, unspecified M79.672 Pain in LEFT foot R00.2 Palpitations G60.0 Hereditary motor and sensory neuropathy Z68.33 Body mass index (BMI) 33.0-33.9, adult I83.892 Varicose veins of LEFT lower extremities w oth complications Office Visit 06/03/2016 10:15a [facility] Swati Robert MD R00.2 Palpitations Office Visit 05/18/2016 9:00a [facility] Swati Robert MD Z01.411 Encntr for cane cutter exam (general) (routine) w abnormal findings E28.2 Polycystic ovarian syndrome R00.2 Palpitations R31.9 Hematuria, unspecified Office Visit 03/09/2016 8:30a [facility] Swati Robert MD G60.0 Hereditary motor and sensory neuropathy N92.6 Irregular menstruation, unspecified Z13.220 Encounter for screening for lipoid disorders Z68.33 Body mass index (BMI) 33.0-33.9, adult Office Visit 01/07/2015 10:30a Lyly Key, V72.83 Examination N.P. Preoperative Other Spec Office Visit 11/18/2014 10:15a Lyly Key, 461.0 Sinusitis Acute N.P. Maxillary 784.0 Headache Office Visit 10/17/2014 8:30a Lyly Key, 079.99 Viral Infection Unspec N.P. Office Visit 04/11/2014 10:45a Lyly Key, 382.00 Otitis Media N.P. Suppurative Acute Office Visit 10/24/2013 10:00a Lyly Key, 616.10 Vaginitis & N.P. Vulvovaginitis Unspec 569.42 Pain Anal Or Rectal V74.5 Screening Examination Venereal Disease Office Visit 09/26/2013 11:00a Lyly Key, 789.9 Abdomen & Pelvis N.P. Symptoms Other Office Visit 01/18/2013 8:15a Lyly Key, 455.8 Hemorrhoids Unspec W/ N.P. Other Complications Office Visit 08/03/2012 9:00a Lyly Key, 719.47 Pain Joint Ankle & N.P. Foot Office Visit 07/27/2012 8:15a Lyly Key, 719.47 Pain Joint Ankle & N.P. Foot Office Visit 01/02/2012 1:30p Lyly Key, 719.47 Pain Joint Ankle & N.P. Foot 372.30 Conjuctivitis Unspec Office Visit 09/09/2011 11:30a Lyly Key, 616.10 Vaginitis & N.P. Vulvovaginitis Unspec 626.9 Menstruation & Other Abnormal Bleeding Disorders Unspec Office Visit 03/24/2011 1:45p Lyly Key, 054.79 Herpes Simplex N.P. Other 461.0 Sinusitis Acute Maxillary Office Visit 01/25/2011 2:30p Lyly Key, V22.2 State N.P. Incidental Normal Office Visit 12/28/2010 11:00a Lyly Key, V72.31 Routine Fiberglass Bonding Machine Tender N.P. Examination Office Visit 05/25/2009 2:00p Lyly Key, V72.31 Routine Fiberglass Bonding Machine Tender N.P. Examination 616.10 Vaginitis & Vulvovaginitis Unspec Office Visit 03/30/2009 8:45a Lyly Key, 789.9 Abdomen & Pelvis N.P. Symptoms Other Office Visit 01/07/2009 3:45p Lyly Key, 626.9 Menstruation & Other N.P. Abnormal Bleeding Disorders Unspec Office Visit 12/29/2008 3:45p Lyly Key, 626.9 Menstruation & Other N.P. Abnormal Bleeding Disorders Unspec Office Visit 05/30/2008 10:00a Lyly Key, V72.31 Routine Fiberglass Bonding Machine Tender N.P. Examination Office Visit 01/15/2007 3:45p Lyly Key, 784.0 Headache N.P. Office Visit 01/09/2007 4:00p Lyly Key, 784.0 Headache N.P. 780.4 Dizziness & Giddiness Office Visit 03/30/2006 3:45p Lyly Key, 616.10 Vaginitis & N.P. Vulvovaginitis Unspec 681.11 Onychia & Paronychia Toe 372.00 Conjunctivitis Acute Unspec Office Visit 03/14/2006 3:45p Lyly Key, 681.11 Onychia & Paronychia N.P. Toe Plan of Treatment Future Appointment(s):03/21/2019 4:00 pm - Swati Robert MD at [facility]12/27/2018 - Swati Robert MDZ01.419 Encounter for gynecological examination (general) ( routine)Comments:pap with HPV testing done. If normal, will repeat in 1-5 years. will need an annual physical with breast exam.Z13.31 Encounter for screening for depressionComments:screening for depression is negative PHQ-2= 0R05 CoughComments:there is no sign of pneumonia so it is ok to use guaifenesin / dextromethorphan to suppress the cough and loosen mucus.Z68.36 Body mass index (BMI) 36.0-36.9, adultComments:the BMI is the ratio between height and weight . the goal BMI for your age is between 18 and 25. This means you are overweight. Recommend weight loss with healthy diet and regular exercise. 150 minof exercise weekly is the goal.AllNew Medication:Multivitamin Adult - 1 by mouth every day
[2019-01-18 20:14] VITALS: BP 122/68
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
== END 2019-01-18 21:20 | disposition home or self-care (01) ==
LOC: UCCORT 19:52
DX: S16.1XXA Strain of muscle, fascia and tendon at neck level, initial encounter (principal); V89.2XXA Person injured in unspecified motor-vehicle accident, traffic, initial encounter; Y92.9 Unspecified place or not applicable
CPT/HCPCS: 72050; 99211; G0463